=== PATIENT | female | born 1945 | race American Indian/Alaskan Native ===

== ENCOUNTER 2022-04-11 11:25 | Emergency (ER) | payer OTHER ==
[2022-04-11] MEDS ORDERED: ALBUTEROL 2.5 MG/3 ML NEBU IH ONE (12:02)
--- NOTE | 2022-04-11 12:08 | Emergency Department Report ---
ED Shortness of Breath HPI - General Chief Complaint: Dyspnea/Respdistress Stated Complaint: SOB/WEAKNESS Time Seen by Provider: 04/11/22 11:49 Source: patient, EMS Mode of arrival: Stretcher Limitations: No Limitations - History of Present Illness Initial Comments: 77-year-old female presents emergency department complaints of shortness of breath. Patient states that she initially felt bad on yesterday although she cannot fully explain her symptoms. Today she denies any chest pain fevers but states she has had some chills and possible cough. Patient presented to a [facility] where she was noted to be hypoxic in the 70s on room air. They noted that she was also tachycardic and possibly hyperventilating. She was placed on supplemental oxygen and her saturations improved to the 90s. Patient did not get any treatment in route. She notes that she has a history of thyroid cancer but states that she is completed treatment. - Related Data Allergies Allergy/AdvReac Type Severity Reaction Status Date / Time No Known Allergies Allergy Unverified 04/11/22 11:56 ED Review of Systems ROS: Stated complaint: SOB/WEAKNESS Other details as noted in HPI Constitutional: chills. denies: fever Eyes: denies: eye pain, eye discharge, vision change ENT: denies: ear pain, throat pain Respiratory: cough, shortness of breath, SOB with exertion, SOB at rest. denies: wheezing Cardiovascular: dyspnea on exertion. denies: chest pain, palpitations, edema Endocrine: no symptoms reported Gastrointestinal: denies: abdominal pain, nausea, diarrhea Genitourinary: denies: urgency, dysuria, discharge Musculoskeletal: denies: back pain, joint swelling, arthralgia Skin: denies: rash, lesions Neurological: denies: headache, weakness, paresthesias Psychiatric: denies: anxiety, depression Hematological/Lymphatic: denies: easy bleeding, easy bruising ED Past Medical Hx - Past Medical History Hx Diabetes: Yes Additional medical history: THYROID CANCER - Surgical History Additional Surgical History: THYROID - Social History Smoking Status: Never Smoker Substance Use Type: None ED Physical Exam - General Limitations: No Limitations General appearance: alert, in no apparent distress - Head Head exam: Present: atraumatic, normocephalic - Eye Eye exam: Present: normal appearance - ENT ENT exam: Present: mucous membranes moist - Neck Neck exam: Present: normal inspection - Respiratory Respiratory exam: Present: wheezes (Wheezing noted mainly in the left lung field) - Cardiovascular Cardiovascular Exam: Present: tachycardia. Absent: systolic murmur, diastolic murmur, rubs, gallop - GI/Abdominal GI/Abdominal exam: Present: soft, normal bowel sounds - Rectal Rectal exam: Present: deferred - Extremities Exam Extremities exam: Present: normal inspection - Back Exam Back exam: Present: normal inspection - Neurological Exam Neurological exam: Present: alert, oriented X3 - Psychiatric Psychiatric exam: Present: normal affect, normal mood - Skin Skin exam: Present: warm, dry, intact, normal color. Absent: rash ED Course Vital Signs 04/11/22 04/11/22 04/11/22 11:57 13:00 13:41 Temperature 97.7 F Pulse Rate 121 H 112 H Pulse Rate [ 116 H Bilateral] Respiratory 32 H 24 Rate Respiratory 20 Rate [Bilateral ] Blood Pressure 142/75 132/76 [Left] O2 Sat by Pulse 100 94 Oximetry 04/11/22 18:31 Temperature Pulse Rate 86 Pulse Rate [ Bilateral] Respiratory 22 Rate Respiratory Rate [Bilateral ] Blood Pressure [Left] O2 Sat by Pulse 95 Oximetry - Reevaluation(s) Reevaluation #1: 04/11/22 21:21 Patient admitted to hospitalist. VQ scan was negative for PE, patient was started on lovenox for elevated trop. ED Medical Decision Making - Lab Data Result diagrams: 04/11/22 12:23 04/11/22 12:23 - EKG Data -: EKG Interpreted by Hi - Radiology Data Radiology results: report reviewed, image reviewed - Medical Decision Making This patient is a 77-year-old female who presents to the emergency department with complaint of dyspnea. Patient has history of thyroid cancer. Patient was at a [place] facility where she was noted to be hypoxic and tachycardic. Differential includes pneumonia, pulmonary embolism, viral illness, COVID-19. Plan for evaluation with basic labs chest x-ray and CTA of the chest. Given patient had wheezing on exam we will give a DuoNeb. Patient likely to be adm itted pending work-up. Critical care attestation.: If time is entered above; I have spent that time in minutes in the direct care of this critically ill patient, excluding procedure time. ED Disposition Clinical Impression: NSTEMI (non-ST elevated myocardial infarction), Dyspnea Disposition: 09 ADMITTED INPATIENT Is pt being admited?: Yes Does the pt Need Aspirin: Yes Condition: Stable Referrals: HYUN GUZMAN MD [Primary Care Provider] - 3-5 Days
--- NOTE | 2022-04-11 13:11 | XRay Report ---
CHEST 1 VIEW 04/11/2022 12:51 PM INDICATION / CLINICAL INFORMATION: Dyspnea. COMPARISON: None available. FINDINGS: SUPPORT DEVICES: None. HEART / MEDIASTINUM: No significant abnormality. LUNGS / PLEURA: No significant pulmonary or pleural abnormality. No pneumothorax. ADDITIONAL FINDINGS: No significant additional findings. IMPRESSION: 1. No acute findings. Signer Name: Oz Lemon Jr, MD Signed: 04/11/2022 1:07 PM Workstation Name: [id number]
[2022-04-11 13:28] LABS: Alanine Aminotransferase 73 units/L (7-56); Albumin 3.5 g/dL (3.9-5); Calcium 9.8 mg/dL (8.4-10.2); Hemolysis Index 6
[2022-04-11 13:42] VITALS: BP 132/76
[2022-04-11] MEDS ORDERED: MAGNESIUM SULFATE 2 GM/50 ML BAG IV ONE (13:57)
[2022-04-11 14:03] LABS: Hematocrit 42.5 % (30.3-42.9); Hemoglobin 13.7 gm/dl (10.1-14.3); Mean Corpuscular HGB Conc 32 % (30-34); Mean Corpuscular Volume 87 fl (79-97); Platelet Count 204 K/mm3 (140-440); Red Blood Count 4.87 M/mm3 (3.65-5.03); Red Cell Distribution Width 15.6 % (13.2-15.2)
[2022-04-11 14:04] LABS: INR 0.89 (0.87-1.13)
[2022-04-11 14:05] LABS: Partial Thromboplastin Time 25.5 Sec. (24.2-36.6)
[2022-04-11 14:12] LABS: BUN/Creatinine Ratio 14; Blood Urea Nitrogen 10 mg/dL (7-17); Chol/HDL Ratio 3.31 %; HDL Cholesterol 47 mg/dL (40-59); LDL Cholesterol,Direct 81 mg/dL (50-130)
[2022-04-11 15:45] LABS: Band Neutrophils # (Manual) 0.6 K/mm3; Basophils % (Manual) 0 % (0.0-1.8); RBC Morphology Normal; Total Cells Counted 100
[2022-04-11 15:46] LABS: Large Platelets Rare; Platelet Clumps Rare; Platelet Estimate Consistent w Auto
[2022-04-11] MEDS ORDERED: ASPIRIN 81 MG TAB CHEW PO ONE (17:35)
--- NOTE | 2022-04-11 19:08 | Nuclear Medicine Report ---
NUCLEAR MEDICINE PERFUSION LUNG SCAN INDICATION / CLINICAL INFORMATION: tachycardia and hypoxia. TECHNIQUE: 5.5 mCi of Tc-99m MAA were given by IV. COMPARISON: Chest radiograph dated chest radiograph dated 04/11/2022. FINDINGS: PERFUSION: No significant perfusion defects. ADDITIONAL FINDINGS: None. IMPRESSION: 1. Low probability for pulmonary embolism. Signer Name: Booker Barros MD Signed: 04/11/2022 7:03 PM Workstation Name: [id number]
[2022-04-11] MEDS ORDERED: ENOXAPARIN 100 MG/1 ML INJ SUB-Q ONE (20:21)
--- NOTE | 2022-04-12 11:50 | Electrocardiograph Report ---
Test Date: 2022-04-11 Test Time: 12:39:09 Pat Name: EDUARDO VILLALPANDO Department: Room: Gender: F Telecommunication Equipment Repairer: ZARI : 1945 Requested By: DIVYA WALKER Order Number: [id number] Reading MD: Antonio Vides Measurements Intervals [place] Rate: 119 P: 59 SD: 165 QRS: -38 QRSD: 134 T: -11 QT: 317 QTc: 447 Interpretive Statements Sinus tachycardia Right bundle branch block Repol abnrm suggests ischemia, diffuse leads No previous ECG available for comparison Electronically Signed On 04-12-2022 8:50:22 PDT by Antonio Vides
== END 2022-04-12 02:20 | disposition admitted as inpatient to this hospital (09) ==
LOC: ED 11:25
DX: I21.4 Non-ST elevation (NSTEMI) myocardial infarction (principal); R13.10 Dysphagia, unspecified; E11.9 Type 2 diabetes mellitus without complications
CPT/HCPCS: 36415; 71045; 78580; 80053; 80061; 82140; 83690; 83735; 84484; 85007; 85025; 85379; 85610; 85730; 87040; 93005; 94640; 94644; 96365; 99284; 99285; A9540; J3475